=== PATIENT | male | born 1955 | race Caucasian/White ===

== ENCOUNTER 2017-01-20 16:00 | Inpatient (IN) | payer OTHER ==
[2017-01-20] MEDS ORDERED: ACETAMINOPHEN 325 MG TAB PO PRN (18:18)
[2017-01-20] MEDS ORDERED: ONDANSETRON 4 MG/2 ML VIAL IVP PRN (18:18)
[2017-01-20] MEDS ORDERED: ONDANSETRON DISINTEGRATING 4 MG TAB PO PRN (18:18)
[2017-01-20] MEDS: ATORVASTATIN CALCIUM 40 MG TAB PO SCH (18:43)
[2017-01-20] MEDS: ASPIRIN 81 MG CHEWABLE TAB PO SCH (18:43)
[2017-01-20 19:23] LABS: % IMMATURE GRANULYOCYTES 0.9 % (0.0-1.1); ABSOLUTE IMMATURE GRANULOCYTES 0.04 10^3/uL (0.00-0.10); ADD DIFF? NO; ADD MORPH? NO; ADD SCAN? NO; ATYPICAL LYMPHOCYTE FLAG 10 (0-99); FRAGMENT RBC FLAG 0 (0-99); HEMOGLOBIN 8.6 g/dL (13.7-17.5); LEFT SHIFT FLG 10 (0-99); LIPEMIA HEMOLYSIS FLAG 90 (0-99); MEAN CELL HEMOGLOBIN 30.7 pg (27.9-34.1); MEAN CELL HEMOGLOBIN CONCENTR. 34.4 g/dL (32.4-36.7); MEAN CELL VOLUME 89.3 fL (81.5-99.8); MEAN PLATELET VOLUME 9.1 fL (8.7-11.7); PLATELET CLUMPS FLAG 10 (0-99); PLATELET COUNT 210 10^3/uL (150-400); RED CELL DISTRIBUTION WIDTH 14.6 % (11.5-15.2)
--- NOTE | 2017-01-20 19:26 | GHP ---
[f rep st] HISTORY AND PHYSICAL DATE OF ADMISSION: 01/20/2017 CHIEF COMPLAINT: Presyncope. HISTORY OF PRESENT ILLNESS: The patient is a 61-year-old male with a complex medical history including endstage renal disease secondary to polycystic kidney who receives hemodialysis. He was at his dialysis center today when he began feeling lightheaded and was sent to the emergency department for further evaluation. He also is noted to have a history of hypertrophic cardiomyopathy and has recently been experiencing problems with tachy-bradyarrhythmias. He is followed by Dr. Castillo, form carpenter, and they have been monitoring a single lead EKG via an iPhone scott by his report. He seems to correlate his near-syncope symptoms, including lightheadedness and delayed speech, with changes in his heart rate. He had an appointment with Dr. Kelsey from the Electrophysiology service, for evaluation for possible pacemaker in 2 days. However, given his persistent symptoms during dialysis, he is transferred to [facility] from [facility] so he can be managed by his primary form carpenter. He also has a history of a prior CVA. This occurred 2 months ago and presented as a transient global amnesia picture although this was thought to be secondary to a TIA event. Dr. Díaz is his primary transport nurse and he receives hemodialysis Friday, Friday, Friday. Upon my evaluation, the patient denies lightheadedness, dizziness, chest pain, shortness of breath, palpitations. He again gives a history that he occasionally develops slow speech which he correlates with an increase in his heart rate. These symptoms tend to resolve after several minutes. He currently has normal speech with no focal neuro deficits. However, due to concerns for tachy-bradyarrhythmia he is admitted to the hospital for monitoring and cardiology and likely electrophysiology consults. PAST MEDICAL HISTORY: 1. End-stage renal disease secondary to polycystic kidney disease on hemodialysis Friday, Friday, Friday, followed by Dr. Estevan Díaz at [facility]. 2. Hypertrophic cardiomyopathy. 3. History of CVA. 4. Anemia, likely secondary to chronic kidney disease with a stable hemoglobin of 8.5. 5. Obstructive sleep apnea. 6. Hypertension. 7. A 3 mm anterior communicating artery aneurysm on a recent CT angiogram. 8. Chronic small vessel ischemic changes on prior MRI. PAST SURGICAL HISTORY: 1. Bilateral nephrectomy. 2. AV fistula placement in the right forearm. 3. Peritoneal dialysis catheter placement and removal. 4. Skin cancer resection. 5. Right knee surgery. MEDICATIONS: Please see [employer] for complete updated outpatient medication list. ALLERGIES: Adhesive tape. FAMILY HISTORY: Reviewed and noncontributory. SOCIAL HISTORY: The patient is , his is at the bedside, he has 3 children. He denies tobacco or regular alcohol use. 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 REVIEW OF SYSTEMS: A 10-point review of systems was performed and was negative except as per HPI. OBJECTIVE: VITAL SIGNS: Temperature is 36.6, blood pressure 162/77, heart rate 56, respiratory rate 16. He is 98% on room air. GENERAL: The patient is awake, alert, oriented, no acute distress. HEENT: Head is atraumatic, normocephalic. Pupils equal, round, react to light. Extraocular muscles are intact. Oropharynx is clear. Mucous membranes are moist. NECK: Supple. There is no JVD. HEART: Regular rate and rhythm. He has a 4/6 systolic ejection murmur, loudest over the left sternal border. LUNGS: Clear to auscultation bilaterally. ABDOMEN: Soft, nondistended, nontender. Normoactive bowel sounds. EXTREMITIES: Without cyanosis, clubbing, or edema. NEUROLOGIC: Pronator drift is negative. There is no facial asymmetry. Speech is fluent. There are no focal neuro deficits at this time. DIAGNOSTIC STUDIES: EKG is pending. LABORATORY DATA: Pending. This information is unavailable at the time of this dictation as the patient is a direct admit. ASSESSMENT AND PLAN: The patient is a 61-year-old male with a history of end- stage renal disease and hypertrophic cardiomyopathy who presents for direct admission on transfer from [facility] emergency department with near syncope symptoms. 1. Presyncope. Consider cardiogenic source given his HCM with possible decreased cardiac output vs tachy / bradyarrhythmia vs symptomatic anemia vs TIA. He has no focal neuro deficits at this time. I reviewed his CT scan from the [facility] ED and it was negative for an acute intracranial abnormality. He will be monitored on telemetry. Cardiology consult is requested. He will likely also need electrophysiology consult given his tachy/ jorge history. I will check a carotid artery ultrasound to ensure that is not the source of his presyncopal symptoms. We will also check an echocardiogram to evaluate his left ventricular outflow tract. Although I am less suspicious for a CVA, I will go ahead and give him aspirin and statin. Should he have new neurologic symptoms, will request a Neurology consult for consideration of an MRI though it sounds like he recently had an MRI that did not confirm a stroke. Therefore, I will defer further brain imaging at this time unless he develops acute neuro deficits. 2. Endstage renal disease. The patient is dialysis dependent and just dialyzed today. He has no urgent dialysis needs. We will go ahead and recheck his labs to assess his electrolytes and will alert Nephrology of his admission tomorrow so he can be followed inpatient for his ongoing dialysis needs. His next dialysis is due on Friday. 3. Hypertension. His blood pressure is slightly elevated on arrival. I'm currently awaiting completion of his medication reconciliation. When completed , we will resume his outpatient antihypertensive medications. 4. Anemia, likely secondary to chronic kidney disease. His hemoglobin is stable at 8.5. We will defer to Nephrology any Procrit dosing he may need. He is a Christian and declines transfusion. 5. History of prior cerebrovascular accident as above. We will keep him on aspirin and statin for now. 6. DVT prophylaxis. Subcu heparin. CODE STATUS: The patient is full code. DISPOSITION: Patient admitted to observation status though he may be a candidate to transition to inpatient should he require cardiac interventions. /[id number]/MODL MTDD
[2017-01-20 19:36] LABS: INR 1.09 (0.83-1.16)
[2017-01-20 19:38] LABS: ANION GAP 10 mEq/L (8-16); CALCIUM 10.3 mg/dL (8.5-10.4); CARBON DIOXIDE 30 mEq/l (22-31); CHLORIDE 95 mEq/L (97-110); CREATININE 4.8 mg/dL (0.7-1.3); GLOMERULAR FILTRATION RATE 12; GLUCOSE 90 mg/dL (70-100); POTASSIUM 4.4 mEq/L (3.5-5.2); SODIUM 135 mEq/L (134-144)
[2017-01-20 19:50] LABS: TROPONIN I 0.038 ng/mL (0-0.034)
[2017-01-20] MEDS: HEPARIN 5,000 UNIT/0.5 ML SYR SC SCH (20:37)
--- NOTE | 2017-01-20 22:22 | PDCARPN ---
Cardiology Progress Note Chief Complaint: Mr. Reid is well known to my practice. I have been primarily treating his blood pressure which has been well controlled for the last 3-4 months. He has had increasing complaints of palpitations, near syncope and possible TIA in Dec 2016. Work up at [facility] was unremarkalbe for source of TIA. Recent Zio with frequent PVC's and several runs of WCT vs NSVT, longest of 6 beats ( asymptomatic). Now with near syncope and feeling "foggy". Symptoms coincide with decline in Hgb. Assessment/Plan: Assessment: 1 Near Syncope 2. PVC's (runs of WCT vs NsVT on Zio this month) 3. Anemia 4. HTN 5. ESRD Plan: 1. continue current medication 2. EP consult with Dr. Kelsey in the morning 01/20/17 22:22 Time Spent With Patient: 45 min Objective: Vital Signs (8 Hrs) Temp Pulse Resp BP Pulse Ox 01/20/17 20:00 36.7 C 64 15 125/65 H 97 01/20/17 16:00 36.6 C 56 L 16 162/77 H 98 Intake/Output (24 Hrs) 01/19/17 01/20/17 01/21/17 05:59 05:59 05:59 Other: Weight 65.7 kg Intake Quantity Yes Sufficient Result Diagrams: 01/20/17 19:15 01/20/17 19:15 Cardiac Labs: Cardiac Lab Results (72 Hrs) 01/20/17 19:15 Troponin I 0.038 H - Physical Exam Constitutional: WDWN Ears, Nose, Mouth, Throat: moist mucous membranes Cardiovascular: regular rate and rhythm Respiratory: clear to auscultate bilat Gastrointestinal: normoactive bowel sounds Skin: no rashes Musculoskeletal: no muscular tenderness Neurologic: AAOx3, CN II-XII grossly intact Psychiatric: cooperative, interactive, following commands ICD10 Worksheet Patient Problems: Problems Problem Status Onset HTN (hypertension) Acute - ICD10 Problem Qualifiers (1) HTN (hypertension) Qualifiers: Hypertension type: H
--- NOTE | 2017-01-20 22:59 | CPEKG ---
Heart Rate: 60 RR Interval: 1000 P-R Interval: 212 QRSD Interval: 112 QT Interval: 452 QTC Interval: 452 P [place]: 81 QRS [place]: -75 T Wave [place]: 80 EKG Severity - ABNORMAL ECG - EKG Impression: SINUS RHYTHM EKG Impression: LAD, CONSIDER LEFT ANTERIOR FASCICULAR BLOCK EKG Impression: ANTERIOR INFARCT, AGE INDETERMINATE Electronically Signed By: Aaron Webb 22-Jan-2017 09:32:45
--- NOTE | 2017-01-20 23:02 | GCON ---
[f rep st] CONSULTATION CARDIOLOGY CONSULTATION DATE OF CONSULTATION: 01/20/2017 REFERRING PHYSICIAN: Tayler Block MD INDICATION FOR ADMISSION: New onset of lightheadedness and fatigue with increasing PVCs. HISTORY OF PRESENT ILLNESS: The patient is a pleasant 61-year-old gentleman, well known to my cardiology practice at [facility], with a known history of polycystic kidney disease, status post end-stage renal disease and bilateral nephrectomy, essential hypertension, anemia secondary to chronic renal disease, severe combined central and obstructive sleep apnea followed by [facility], history of possible TIA earlier this year, who presented this morning to dialysis as he typically does at 5 o'clock in the morning. At that point, he was described as feeling lightheaded, weak, and lethargic, prompting his evaluation at [facility] after he completed dialysis. I spoke with the emergency room physician at [facility] regarding his most recent history and the patient requested transfer to [facility] for further evaluation. In summary of the patient's cardiac care, the patient initially came to see me in the office in June of 2016, secondary to suboptimally controlled blood pressure. With gradual titration of medication, his blood pressure was optimally well-controlled on minoxidil 30 mg p.o. b.i.d., losartan 50 mg daily, and amlodipine 10 mg daily. He had undergone a normal nuclear stress test in June 2016. Echocardiogram in June demonstrated severe concentric LVH with septal wall thickness of 1.6 cm with no evidence of left ventricular outflow tract obstruction or systolic anterior motion. LV EF of 60% to 65%. He had severe left atrial enlargement and moderate right atrial enlargement with moderate mitral regurgitation and moderate pulmonary hypertension with RV systolic pressure between 50 and 60 mmHg. The patient was in his usual state of health until shortly after the new year when he began complaining of intermittent palpitations. Holter monitor in November 2016, demonstrated normal sinus rhythm with rare ectopic beats with an average heart rate of 69 beats per minute. In December, he came to see me after having an episode of what he described as acute onset of confusion and memory loss. He was admitted to [facility] in December 2016, and underwent extensive workup including a CT of the head and neck which demonstrated nonobstructive vascular disease and evidence of a 3 mm aneurysm of the communicating artery. He underwent MRI of the brain at that time demonstrating chronic small vessel ischemic changes. In January he had acute onset of a rapid heartbeat associated with dizziness and lightheadedness. A cardia home heart rhythm monitor demonstrated a wide- complex rhythm coupled with artifact that was moderately difficult to interpret. He subsequently underwent a ZIO patch monitor. His ZIO patch monitor demonstrated multiple runs of wide-complex tachycardia, the longest of which was 6 beats and he had multiple runs of supraventricular tachycardia, the longest of which was 16 beats. He had incessant PVCs totaling 5.8% of all heartbeats throughout the 13-day period of wearing his ZIO patch. Symptoms recorded with ZIO patch associated with sinus rhythm and isolated PVCs. I had planned for him to be evaluated by Dr. Kelsey for consideration of possible EP study in the setting of symptomatic sudden onset of rapid heartbeat and evidence of wide-complex tachycardia. His symptoms have also correlated with a decline in his hematocrit. His most recent hematocrit was 8. Currently in the hospital today, it is 8.6. He did receive increased dose of Epogen during his last 2 dialysis runs. He states his hemoglobin typically runs around 8. Of note, the patient is a Amish and refuses all blood products. The patient states to me this evening that he felt "foggy" all weekend long with intermittent palpitations. He denied any near-syncope or syncopal events. He does admit to some mild increase in shortness of breath and dyspnea on exertion. He has no complaints of exertional chest pain or chest pressure. Currently at the time of my exam, he is resting comfortably without complaint. Telemetry demonstrates sinus rhythm with frequent isolated single PVCs. REVIEW OF SYSTEMS: Positive for shortness of breath, dyspnea, fatigue, and palpitations. No complaints of chest pain, chest pressure, dizziness, lightheadedness, near-syncope, or syncope. No complaints of PND, orthopnea, or lower extremity edema. He denies complaints of fevers, chills, sweats, nausea, or vomiting. He denies any medical noncompliance. PAST MEDICAL HISTORY: 1. End-stage renal disease secondary to polycystic kidney disease, status post bilateral nephrectomy. 2. Chronic hemodialysis Friday, Friday, Friday. Followed by Dr. Díaz of [facility], although he plans to change to a practice in the [facility]. 3. Hypertension. 4. Hypertensive cardiomyopathy with severe LVH with septal wall thickness of 1.6 cm. No evidence of outflow tract obstruction or systolic anterior motion. 5. History of TIA-like symptoms in December 2016. No significant abnormalities on workup with the exception of chronic small vessel disease and 3 mm communicating aneurysm. PAST SURGICAL HISTORY: 1. Bilateral nephrectomy. 2. AV fistula in the right forearm and history of peritoneal dialysis catheter and removal. MEDICATIONS ON ADMISSION: Amlodipine 10 mg daily, losartan 50 mg daily, minoxidil 30 mg p.o. b.i.d., Kayexalate, Neurontin 100 mg p.o. b.i.d. p.r.n. ALLERGIES: Adhesive tape. FAMILY HISTORY: No premature coronary artery disease. SOCIAL HISTORY: The patient is . He lives with his . He has 3 children. No history of tobacco or regular alcohol use. PHYSICAL EXAMINATION: VITAL SIGNS: On exam blood pressure is 125/65. His blood pressure was 162/77 on admission. Heart rate of 64, respiratory rate of 15, oxygen saturation 97% on room air, temperature 36.7. GENERAL: He is awake , alert, oriented, appropriate. No apparent distress. NECK: There is no evidence of JVP or carotid bruits. LUNGS: Clear to auscultation bilaterally. CARDIAC: S1, S2. Regular rate and rhythm. No murmurs, rubs, or gallops. PMI is not displaced. ABDOMEN: Soft, nontender, nondistended. No pulsatile mass or abdominal bruit. EXTREMITIES: He has no evidence of cyanosis clubbing or edema. DATA: Lab work includes white blood cell count of 4.47, hemoglobin of 8.6, hematocrit 25, platelet count 210. Sodium 135, potassium 4.4, chloride 95, bicarb 30, BUN 21, creatinine 4.8, glucose 90, calcium 10.3. Troponin 0.038. Carotid Doppler study done at [facility] today demonstrates negative evidence of flow-limiting carotid stenosis, small calcified plaque in the carotid bulbs bilaterally. Echocardiogram done June 2016, demonstrates LVEF of 60% to 65%. Severe concentric LVH. Septal wall thickness of 1.6 cm. Severe left atrial enlargement. Moderate right atrial enlargement. Moderate mitral regurgitation. Mild tricuspid regurgitation. RV systolic pressure between 50 and 60 mmHg. Nuclear stress test June 2016: Normal perfusion and function. ZIO patch monitor December 2016: Multiple runs of wide-complex tachycardia with the longest run of 6 beats. Multiple runs of supraventricular tachycardia with the longest run of 16. Incessant PVCs totaling 5.8% of all heartbeats. ASSESSMENT: 1. Recent episodes of near-syncope. 2. Frequent PVCs and runs of wide-complex tachycardia on ZIO patch monitor. 3. Anemia of chronic disease with hemoglobin of 8.6 with hematocrit of 25. Note: Amish, refuses blood products. 4. Hypertension, well controlled on current medical therapy of amlodipine 10 mg daily, losartan 50 mg daily, and minoxidil 30 mg p.o. b.i.d. DISCUSSION: I have been caring for the patient since June of 2016, at which time we were treating suboptimally controlled blood pressure. His blood pressure has been well controlled on current medical therapy for several months. His complaints of palpitations, near-syncope, and recent TIA-like event in December 2016, coincide with decline in his hemoglobin. He typically runs at 8. He is currently 8.6. Again, he is Amish, refusing blood products. He did have an episode of near-syncope with a home cardia heart monitor demonstrating wide-complex tachycardia that coincided with his symptoms. He did undergo a normal nuclear stress test in June 2016. He was scheduled to see Dr. Kelsey on Friday for consideration of possible EP study for possible underlying supraventricular tachycardia versus ventricular tachycardia as origin of his symptoms. Would recommend consultation with electrophysiology with Dr. Kelsey during this hospitalization. RECOMMENDATIONS: 1. Will consult with Dr. Kelsey tomorrow morning. 2. Continue current antihypertensive regimen. 3. Continue on telemetry. 4. Recommend Epogen per Nephrology at hemodialysis on Friday. 45 minutes spent coordinating care. /[id number]/MODL MTDD
[2017-01-21] MEDS: HEPARIN 5,000 UNIT/0.5 ML SYR SC SCH ×3 (05:45→22:06)
[2017-01-21] MEDS: MINOXIDIL 10 MG TAB PO SCH ×2 (09:11→22:06)
[2017-01-21] MEDS: ATORVASTATIN CALCIUM 40 MG TAB PO SCH (09:11)
[2017-01-21] MEDS: ASPIRIN 81 MG CHEWABLE TAB PO SCH (09:11)
[2017-01-21] MEDS: LISINOPRIL 40 MG TAB PO SCH (09:11)
[2017-01-21] MEDS: CALCIUM CARBONATE 500 MG CHEWABLE TAB PO SCH ×3 (09:16→17:47)
[2017-01-21] MEDS ORDERED: IOPAMIDOL (ISOVUE 370) 100 ML BTL IV ONE (15:45)
[2017-01-21] MEDS ORDERED: METOPROLOL TARTRATE 5 MG/5 ML INJ ONE (16:15)
--- NOTE | 2017-01-21 18:36 | HOSPPROG ---
Hospitalist Progress Note Assessment/Plan: # PVCs, NSVT, pre-syncope - EP consult rec's ischemic eval - cardiac CT with possible RCA obstruction, 50% LAD - plan cath tomorrow # ESRD s/p bilat nephrectomy, PCKD - will need HD tomorrow # anemia d/t ESRD - [facility] # htn - lisinopril, norvasc # CVA - asa/statin # SQH Subjective: no syncope Objective: Vital Signs Temp Pulse Resp BP Pulse Ox 36.9 C 64 17 138/65 H 98 01/21/17 16:00 01/21/17 16:00 01/21/17 16:00 01/21/17 16:00 01/21/17 16:00 Laboratory Results 01/20/17 19:15 01/20/17 19:15 01/20/17 01/21/17 01/22/17 05:59 05:59 05:59 Intake Total 0 480 Output Total 0 Balance 0 480 PT 14.0 SEC (12.0-15.0) 01/20/17 19:15 INR 1.09 (0.83-1.16) 01/20/17 19:15 - Time Spent With Patient Time Spent with Patient: greater than 35 minutes Time Spent with Patient: Greater than 35 minutes spent on this patients care, greater than 50% of time spent counseling, educating, and coordinating care regarding the above mentioned plan. - Physical Exam Constitutional: no apparent distress, appears nourished, not in pain ICD10 Worksheet Patient Problems: Problems Problem Status Onset HTN (hypertension) Acute
[2017-01-22] MEDS: HEPARIN 5,000 UNIT/0.5 ML SYR SC SCH ×2 (05:06→15:20)
[2017-01-22] MEDS: CALCIUM CARBONATE 500 MG CHEWABLE TAB PO SCH ×3 (08:52→18:48)
--- NOTE | 2017-01-22 11:50 | PDCARPN ---
Cardiology Progress Note Chief Complaint: Mr. Reid is feeling well this AM. BP is well controlled. Decreased PVC's on telemetry. No new symptoms of dizziness, lightheadedness or near syncope. CTA of coronaries demonstrated approx 50% mid LAD and unable to adequately assess RCA. Plan for [facility] to assess coronary anatomy prior to considering EP study with Dr Kelsey. Plan for HD today as well. Assessment/Plan: Assessment: 1 Near Syncope 2. PVC's (runs of WCT vs NsVT on Zio this month) 3. Anemia 4. HTN 5. ESRD Plan: 1. Left Heart Cath today 2. HD today 3. If no percutaneous intervention needed, will be OK to discharge home after HD 4. If no flow limiting CAD, will arrange for out patient EP study with Dr. Kelsey 5. Recommend discharge home on out patient BP medications. Losartan 50 mg daily , Amlodipine 10 mg daily, Minoxidil 30 mg bid 6. Will follow up with me as an out patient. 01/20/17 22:22 01/22/17 11:47 Reviewed/Discussed With: family, hospitalist Objective: Vital Signs (8 Hrs) Temp Pulse Pulse Pulse Pulse Resp BP 01/22/17 11:29 36.6 C 57 L 15 137/71 H 01/22/17 08:37 62 64 56 L 01/22/17 07:23 36.6 C 59 L 16 149/74 H 01/22/17 04:00 36.4 C 68 14 151/81 H BP BP BP Pulse Ox 01/22/17 11:29 97 01/22/17 08:37 130/70 H 142/81 H 150/76 H 01/22/17 07:23 94 01/22/17 04:00 96 Intake/Output (24 Hrs) 01/21/17 01/22/17 01/23/17 05:59 05:59 05:59 Intake Total 0 680 Output Total 0 Balance 0 680 Intake: Oral (ml) 0 680 Output: Urine (ml) 0 Toilet 0 Other: Weight 64.5 kg 65.5 kg Intake Quantity Yes Sufficient Number of Voids Toilet 1 1 Result Diagrams: 01/20/17 19:15 01/20/17 19:15 Cardiac Labs: Cardiac Lab Results (72 Hrs) 01/21/17 01/20/17 00:11 19:15 Troponin I 0.036 H 0.038 H ICD10 Worksheet Patient Problems: Problems Problem Status Onset HTN (hypertension) Acute - ICD10 Problem Qualifiers (1) HTN (hypertension) Qualifiers: Hypertension type: H
--- NOTE | 2017-01-22 12:02 | ECHO ---
[id number] + + [address] : : [place] [address] : : [phone] + + Adult Echocardiographic Report + ---+ :Name: Raegan CALDERONnabilrudi Date: 01/21/2017 08:25 AM : : Hospital Admission Number: [id number] Location: 209: :: 1955 Gender: Male Height: 70 in : :Age: 61 yrs Race: PTNP Weight: 144 lb : :Reason For Study: Eval LV Fx : : BSA: 1.8 meters2 : :History: Hypertrophic Cardiomyopathy : + ---+ MMode/2D Measurements \T\ Calculations IVSd: 1.8 cm LVIDd: 4.9 cm FS: 47.1 % Ao root diam: 2.6 cm LVPWd: 1.6 cm LVIDs: 2.6 cm EDV(Teich): 110.9 ml ACS: 2.0 cm ESV(Teich): 23.9 ml EF(Teich): 78.4 % Normal Measurement Values: + + :LVIDd (3.5-5.7cm) IVSd (0.6-1.1cm) LVPWd (0.6-1.1cm) Aortic Root (2.0-3.7cm)Left Atrium (1.5-4.0cm): :LV Vol(d) (76-115ml) LV Vol(s) (29-48ml) Ejec Fraction (50-65%)PV Chan (0.6- 1.2m/s) TV Chan (0.4-1.0m/s) : :MV E Chan (0.8-1.0m/s)MV A Chan (0.3-1.0m/s)LVOT Chan (0.7-1.2m/s) Asc Ao Chan ( 0.9-1.8m/s) : + + Doppler Measurements \T\ Calculations MV E max chan: Ao V2 max: AI max chan: LV V1 max: 140.2 cm/sec 253.8 cm/sec 404.3 cm/sec 159.0 cm/sec MV A max chan: Ao max PG: AI max P.4 mmHgLV V1 max P.1 cm/sec 25.8 mmHg AI dec slope: 10.1 mmHg MV E/A: 1.3 258.5 cm/sec2 AI P1/2t: 458.1 msec PA V2 max: TR max chan: 130.3 cm/sec 260.6 cm/sec PA max P.8 mmHgTR max P.2 mmHg RAP systole: 5.0 mmHg RVSP(TR): 32.2 mmHg Left Ventricle The left ventricle is normal in size. There is severe concentric left ventricular hypertrophy. The left ventricular ejection fraction is normal. There is Doppler evidence for diastolic dysfunction. Ejection Fraction = 78%. The left ventricular wall motion is normal. Right Ventricle The right ventricle is normal in size and function. Atria The left atrium is mildly dilated. The right atrium is mildly dilated. Mitral Valve The mitral valve is normal in structure and function. There is no evidence of mitral valve prolapse. There is no mitral valve stenosis. There is mild mitral regurgitation. Tricuspid Valve Normal tricuspid valve. There is mild tricuspid regurgitation. Right ventricular systolic pressure is normal. Aortic Valve The aortic valve is trileaflet. There is no aortic stenosis. Mild aortic regurgitation. Pulmonic Valve The pulmonic valve is normal in structure and function. There is no pulmonic valvular regurgitation. Great Vessels The aortic root is normal size. Pericardium/Pleural There is no pericardial effusion. Conclusion A complete two-dimensional transthoracic echocardiogram was performed (2D, M-mode, Doppler and color flow Doppler). This patient has Hypertrophic cardiomyopathy. The left ventricular ejection fraction is normal. There is Doppler evidence for diastolic dysfunction. Ejection Fraction = 78%. The left ventricular wall motion is normal. The left atrium is mildly dilated. The mitral valve is normal in structure and function. There is mild mitral regurgitation. There is mild tricuspid regurgitation. Right ventricular systolic pressure is normal. The aortic valve is trileaflet. Mild aortic regurgitation. There is no pericardial effusion. This patient has Hypertrophic cardiomyopathy. There is severe concentric left ventricular hypertrophy. Final Reading Physician: Jesús Castillo electronically signed on 01/22/2017 12:00 PM Ordering Physician: Tayler Block Performed By: Price Harris, [facility]
[2017-01-22] MEDS: LISINOPRIL 40 MG TAB PO SCH (12:23)
[2017-01-22] MEDS: ATORVASTATIN CALCIUM 40 MG TAB PO SCH (12:23)
[2017-01-22] MEDS: ASPIRIN 81 MG CHEWABLE TAB PO SCH (12:23)
[2017-01-22] MEDS: MINOXIDIL 10 MG TAB PO SCH (12:24)
--- NOTE | 2017-01-22 12:45 | PDCARCONS ---
Cardiology Consult Reason for Consult: Electrophysiology consultation, frequent PVCs Chief Complaint: Fatigue Requesting Physician: Dr. Jesús Castillo History of Present Illness: I have been asked to visit with Mr. Reid by Dr. Jesús Castillo. [facility], his and daughter were present in the room as was Jamel Obando. He is a very pleasant 59-year-old male who has been complaining of fatigue over the past several weeks. Symptoms have gotten worse recently. He had 1 episode of "blackout" with his speech was incomprehensible but he continued to talk with his family, there was no loss of consciousness. He has not had sustained palpitations. He denies exertional chest pain or exertional palpitations. History Information - Allergies/Home Medication List Allergies/Adverse Reactions: adhesive tape Allergy (Verified 01/20/17 18:05) Home Medications: Aspirin EC [Aspirin EC 81 mg (*)] 81 mg PO DAILY 01/20/17 [Last Taken 01/19/17 10:00] Calcium Carbonate [Tums 500MG (*)] 1,500 mg PO TIDMEAL 01/20/17 [Last Taken 18:00] Lisinopril [Zestril 40 mg (*)] 40 mg PO DAILY 01/20/17 [Last Taken 01/19/17 10: 00] Methocarbamol [Robaxin 500 mg (*)] 500 mg PO HS 01/20/17 [Last Taken 01/19/17 18 :00] Minoxidil [Minoxidil 10 mg (*)] 30 mg PO BID 01/20/17 [Last Taken 01/19/17 18:00 ] amLODIPine BESYLATE [Norvasc 10 mg (*)] 10 mg PO DAILY 01/20/17 [Last Taken 10:00] - Past Medical History ESRD - Social History Smoking Status: Former smoker Physical Exam Temp Pulse Resp BP Pulse Ox 36.6 C 57 L 15 137/71 H 97 01/22/17 11:29 01/22/17 11:29 01/22/17 11:29 01/22/17 11:29 01/22/17 11:29 Constitutional: no apparent distress, appears nourished Eyes: PERRL, anicteric sclera Ears, Nose, Mouth, Throat: hearing normal Cardiovascular: regular rate and rhythym Respiratory: no respiratory distress Lab and Imaging 01/20/17 19:15 01/20/17 19:15 WBC 4.47 10^3/uL (3.80-9.50) 01/20/17 19:15 RBC 2.80 10^6/uL (4.40-6.38) L 01/20/17 19:15 Hgb 8.6 g/dL (13.7-17.5) L 01/20/17 19:15 Hct 25.0 % (40.0-51.0) L 01/20/17 19:15 MCV 89.3 fL (81.5-99.8) 01/20/17 19:15 MCH 30.7 pg (27.9-34.1) 01/20/17 19:15 MCHC 34.4 g/dL (32.4-36.7) 01/20/17 19:15 RDW 14.6 % (11.5-15.2) 01/20/17 19:15 Plt Count 210 10^3/uL (150-400) 01/20/17 19:15 MPV 9.1 fL (8.7-11.7) 01/20/17 19:15 Neut % (Auto) 60.8 % (39.3-74.2) 01/20/17 19:15 Lymph % (Auto) 21.0 % (15.0-45.0) 01/20/17 19:15 Carroll % (Auto) 12.8 % (4.5-13.0) 01/20/17 19:15 Eos % (Auto) 3.6 % (0.6-7.6) 01/20/17 19:15 Baso % (Auto) 0.9 % (0.3-1.7) 01/20/17 19:15 Nucleat RBC Rel Count 0.0 % (0.0-0.2) 01/20/17 19:15 Absolute Neuts (auto) 2.72 10^3/uL (1.70-6.50) 01/20/17 19:15 Absolute Lymphs (auto) 0.94 10^3/uL (1.00-3.00) L 01/20/17 19:15 Absolute Monos (auto) 0.57 10^3/uL (0.30-0.80) 01/20/17 19:15 Absolute Eos (auto) 0.16 10^3/uL (0.03-0.40) 01/20/17 19:15 Absolute Basos (auto) 0.04 10^3/uL (0.02-0.10) 01/20/17 19:15 Absolute Nucleated RBC 0.00 10^3/uL (0-0.01) 01/20/17 19:15 Immature Gran % 0.9 % (0.0-1.1) 01/20/17 19:15 Immature Gran # 0.04 10^3/uL (0.00-0.10) 01/20/17 19:15 PT 14.0 SEC (12.0-15.0) 01/20/17 19:15 INR 1.09 (0.83-1.16) 01/20/17 19:15 Sodium 135 mEq/L (134-144) 01/20/17 19:15 Potassium 4.4 mEq/L (3.5-5.2) 01/20/17 19:15 Chloride 95 mEq/L (97-110) L 01/20/17 19:15 Carbon Dioxide 30 mEq/l (22-31) 01/20/17 19:15 Anion Gap 10 mEq/L (8-16) 01/20/17 19:15 BUN 21 mg/dL (7-23) 01/20/17 19:15 Creatinine 4.8 mg/dL (0.7-1.3) H 01/20/17 19:15 Estimated GFR 12 01/20/17 19:15 Glucose 90 mg/dL (70-100) 01/20/17 19:15 Calcium 10.3 mg/dL (8.5-10.4) 01/20/17 19:15 Troponin I 0.036 ng/mL (0-0.034) H 01/21/17 00:11 Visualized and Interpreted EKG results: Yes EKG additional interpertation: Normal sinus rhythm. Poor R-wave progression. Left axis deviation. IVCD. Telemetry: Sinus rhythm with frequent PVCs, PVCs are monomorphic and appear to be superior axis in morphology. A/P Assessment: 1. Chronic kidney disease on hemodialysis 2. Hypertension 3. Anemia 4. Fatigue. 5. Frequent PVCs. Plan: 61-year-old male who is presenting with fatigue. Fatigue is likely multifactorial and related to end-stage renal disease, chronic anemia and frequent PVCs. I have reviewed his tracings from when he had "blackout spell" this was recorded by his daughter using Kardia device, this is consistent with sinus rhythm with significant artifact. Telemetry monitoring shows frequent PVCs. His blood pressure is well controlled with 3 antihypertensive agents. His left ventricular ejection fraction is normal, echocardiogram with significant LVH. Frequent PVCs are seen, I discussed with the patient at length that we likely cannot explain all his symptoms based on PVCs alone. However given his progressive fatigue with increasing PVC frequency, we need a definitive assessment of his coronary artery disease status. Myocardial perfusion stress test was normal however I have recommended that he have evaluation of his coronary arteries either with CT angiography of his coronary arteries or with traditional angiogram. He is a Bahai. He is already anemic any bleeding complications from the coronary angiogram could lead to . He understands this. He will discuss this further with Dr. Jesús Castillo. I have also discussed this with Dr. Castillo at length. If coronary angiography shows critical CAD, this should be addressed 1st. If not, we can consider electrophysiology studies down the road to assess whether he is having significant arrhythmias that could have led to symptoms of dizziness.
[2017-01-22 15:05] LABS: ANION GAP 14 mEq/L (8-16); CALCIUM 9.2 mg/dL (8.5-10.4); CARBON DIOXIDE 24 mEq/l (22-31); CHLORIDE 94 mEq/L (97-110); GLOMERULAR FILTRATION RATE 6; GLUCOSE 81 mg/dL (70-100); POTASSIUM 5.7 mEq/L (3.5-5.2); SODIUM 132 mEq/L (134-144)
--- NOTE | 2017-01-22 15:07 | GCON ---
[f rep st] CONSULTATION DATE OF CONSULTATION: 01/22/2017 REASON FOR CONSULTATION: Opinion regarding end-stage kidney failure. HISTORY OF PRESENT ILLNESS: The patient is a very pleasant 61-year-old gentleman who has end-stage kidney failure due to autosomal dominant polycystic kidney disease. He has been on dialysis for scott roximately 20 years. The patient is a Taoism and does not use blood products. Over the course of the past several months, the patient has seen his hemoglobin decrease to between 8 and 9. He was having some dizziness and lightheadedness, as well as some palpitations and felt like the wo rld was spinning around him. He was admitted to the hospital. Evaluation is under way, Cardiology is involved. He is going down for cardiac catheterization later today. The patient has not been having fevers, chills, nausea, vomiting. He has had no chest pain. Does o ccasionally get shortness of breath with these episodes. Feels like he has palpitations. No nausea . No vomiting. No radiation of pain into his neck, jaw, shoulders, arms, or back. He does not stanley ak out into a sweat. No abdominal discomfort, diarrhea, melena, hematochezia, orthopnea, paroxysmal nocturnal dyspnea, palpitations, or syncope. PAST MEDICAL HISTORY: 1. Autosomal dominant polycystic kidney disease. 2. Hypertension. 3. Hyperlipidemia. ALLERGIES: Adhesive tape. FAMILY HISTORY: As far as he knows, there is not a family history of polycystic kidney disease. CURRENT MEDICATIONS: Tylenol 650 mg every 4 hours p.r.n., Norvasc 10 mg a day, aspirin 81 mg a day, Lipitor 40 mg a day, calcium carbonate 1500 mg with each meal, subcutaneous heparin, lisinopril 40 mg a day, minoxidil 30 mg twice daily, Zofran. SOCIAL HISTORY: The patient is on his second marriage, his first of cancer. He is origin ally from [place]. He moved out to [place] to be closer to his daughter and grandchildren. He is a Taoism and does not accept blood products. He has recently remarried. He does not use tobacco, alcohol, IV or recreational drugs and has no tattoos. 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 REVIEW OF SYSTEMS: A complete 12-point review of systems was performed, the pertinent positives and negatives as per the previous sections. PHYSICAL EXAMINATION: VITAL SIGNS: Blood pressure 137/71, pulse 57, respirations 15, temperature 3 6.6 degrees. GENERAL: He is awake, alert, cooperative, in no distress. HEART: Regular. No rub. No S3. There is a grade 1/6 systolic murmur. LUNGS: No rhonchi or wheezes. ABDOMEN: Bowel soun ds are positive, soft, nontender, nondistended. EXTREMITIES: He has a left forearm arteriovenous f istula with a good bruit and thrill. NEUROLOGIC: No asterixis. SKIN: No unusual rashes or lesion s. LYMPH: No palpable lymphadenopathy or lymphedema. MUSCULOSKELETAL: No fusions or tenderness. LABORATORY: Serum sodium 135, potassium 4.4, chloride 95, CO2 30, BUN 21, creatinine 4.8, glucose 9 0, calcium 10.3. WBC 4.5, hemoglobin 8.6, hematocrit 25, platelet count 210,000. IMPRESSION: 1. End-stage kidney failure on 3 times weekly hemodialysis. 2. Taoism, cannot use blood products. 3. Dizziness, lightheadedness, and palpitations, query ischemic or significant vascular disease or coronary vascular disease. RECOMMENDATIONS: 1. Today is his dialysis day. We will try to get him on dialysis after his cardiac catheterization . 2. Cardiac catheterization is planned for this afternoon. 3. Epogen for his anemia. His hemoglobin is 8.6. 4. Continue his antihypertensives. Thank you for allowing me to participate in the care of your patient. If there are any questions, italo blanca do not hesitate to contact me. I will be following along with you. /[id number]/MODL
[2017-01-22] MEDS ORDERED: LIDOCAINE 1% 30 ML SDV ONE (15:14)
[2017-01-22] MEDS ORDERED: MIDAZOLAM 2 MG/2 ML VIAL ONE (15:15)
[2017-01-22] MEDS ORDERED: fentaNYL 100 MCG/2 ML INJ ONE (15:15)
[2017-01-22 15:16] LABS: CREATININE 9.5 mg/dL (0.7-1.3)
[2017-01-22] MEDS ORDERED: HEPARIN 10,000 UNIT/10 ML MDV ONE ×2 (15:16→15:31)
[2017-01-22] MEDS ORDERED: VERAPAMIL 5 MG/2 ML VIAL ONE (15:16)
[2017-01-22] MEDS ORDERED: IOPAMIDOL (ISOVUE 370) 100 ML BTL IV ONE (15:17)
--- NOTE | 2017-01-22 16:55 | HOSPPROG ---
Hospitalist Progress Note Assessment/Plan: # PVCs, NSVT, pre-syncope - ischemic eval negative - likely Linq monitor tomorrow - possibly d/t anemia - will work to increase his hgb as outpatient # ESRD s/p bilat nephrectomy, PCKD - HD today # anemia d/t ESRD - Orthodox # htn - losartan, norvasc # CVA - asa/statin # SQH ## discussed with Norma Douglas and Jonathan Subjective: s/p cath with no obstructive CAD Objective: Vital Signs Temp Pulse Resp BP Pulse Ox 36.6 C 57 L 15 137/71 H 97 01/22/17 11:29 01/22/17 11:29 01/22/17 11:29 01/22/17 11:29 01/22/17 11:29 Laboratory Results 01/20/17 19:15 01/22/17 14:00 01/21/17 01/22/17 01/23/17 05:59 05:59 05:59 Intake Total 0 680 Output Total 0 Balance 0 680 PT 14.0 SEC (12.0-15.0) 01/20/17 19:15 INR 1.09 (0.83-1.16) 01/20/17 19:15 - Time Spent With Patient Time Spent with Patient: greater than 35 minutes Time Spent with Patient: Greater than 35 minutes spent on this patients care, greater than 50% of time spent counseling, educating, and coordinating care regarding the above mentioned plan. - Physical Exam Constitutional: no apparent distress, appears nourished ICD10 Worksheet Patient Problems: Problems Problem Status Onset HTN (hypertension) Acute
--- NOTE | 2017-01-22 17:26 | CPIP ---
[f rep st] INVASIVE CARDIAC PROCEDURE DATE OF PROCEDURE: 01/20/2017 PROCEDURE: 1. Coronary angiography. 2. Left ventriculography. INDICATION: 1. Syncope. 2. Nonsustained ventricular tachycardia and ventricular ectopy on monitoring. ACCESS: Patient was prepped and draped in sterile fashion. 1% lidocaine was used to anesthetize th e left radial region. A 5-Armenian introducer sheath was placed selectively into the left radial judith ry via modified Seldinger technique. CORONARY ANGIOGRAPHY: A 5-Armenian JL 3.5 was advanced to the left main coronary artery and images ob tained. The left main coronary artery bifurcated into an LAD and circumflex coronary arteries. The left main coronary artery appeared normal. The left anterior descending coronary artery gave rise to 2 prominent diagonal branches. In the mid left anterior descending coronary artery, sequential 2 5% to 30% stenoses could be seen. The diagonal arteries appear free of any significant disease. Th e circumflex coronary artery was a large vessel. It was nondominant. Circumflex coronary artery ap peared normal. A 5-Armenian JR4 was advanced to the right coronary artery and images obtained. The r ight coronary artery is dominant. The right coronary artery is large. In the proximal segment of t he right coronary artery there is a discrete 20% stenosis present. In the mid segment there is a di screte 20% stenosis present. LEFT VENTRICULOGRAPHY: 5-Armenian pigtail catheter was advanced in the left ventricle and images obta ined. The left ventricle is normal in size, had normal systolic function. Estimated ejection fract ion of 70%. COMPLICATIONS: None. CONCLUSIONS: 1. Mild coronary artery disease without flow limitation. 2. Normal left ventricular size and systolic function. PLAN: Medical management. /[id number]/MODL
[2017-01-22] MEDS ORDERED: EPOETIN ALFA 10,000 UNIT/ML VIAL SC ONE (21:00)
[2017-01-23] MEDS: HEPARIN 5,000 UNIT/0.5 ML SYR SC SCH ×2 (00:50→06:40)
[2017-01-23] MEDS: MINOXIDIL 10 MG TAB PO SCH ×2 (00:51→08:22)
[2017-01-23] MEDS: ASPIRIN 81 MG CHEWABLE TAB PO SCH ×2 (00:51→08:23)
[2017-01-23] MEDS: ATORVASTATIN CALCIUM 40 MG TAB PO SCH ×2 (00:51→08:23)
[2017-01-23 04:46] VITALS: TEMP 98.2; O2SAT 96
[2017-01-23 05:32] LABS: ANION GAP 15 mEq/L (8-16); CALCIUM 8.8 mg/dL (8.5-10.4); CARBON DIOXIDE 24 mEq/l (22-31); CHLORIDE 97 mEq/L (97-110); CREATININE 4.8 mg/dL (0.7-1.3); GLOMERULAR FILTRATION RATE 12; GLUCOSE 72 mg/dL (70-100); POTASSIUM 4.5 mEq/L (3.5-5.2); SODIUM 136 mEq/L (134-144)
[2017-01-23 07:25] VITALS: BP 148/55; PULSE 67; RESP 16
--- NOTE | 2017-01-23 08:20 | PDCARPN ---
Cardiology Progress Note Chief Complaint: MR. Reid is feeling well this AM. No complaints. Left radial artery site is without hematoma or ecchymosis. BP remains well controlled. No significant ectopy overnight on telemetry. HD last PM. Minimal CAD on C yesterday. Assessment/Plan: Assessment: 1 Near Syncope 2. PVC's (runs of WCT vs NsVT on Zio this month) 3. Anemia 4. HTN 5. ESRD 6. Mild non obstructive cad Plan: 1. Add Atorvastatin 20 mg daily 2. OK to discharge home with no change to out patient BP medications 3. My office with arrange out pt follow up in next two-three weeks 4. Post cath instructions discussed. 01/20/17 22:22 01/22/17 11:47 01/23/17 08:19 Objective: Vital Signs (8 Hrs) Temp Pulse Resp BP Pulse Ox 01/23/17 07:21 36.8 C 67 16 148/55 H 96 01/23/17 04:00 36.8 C 64 14 185/71 H 96 01/23/17 00:40 36.7 C 65 16 173/90 H 100 Intake/Output (24 Hrs) 01/22/17 01/23/17 01/24/17 05:59 05:59 05:59 Intake Total 680 700 Output Total 0 1999 Balance 680 -1300 Intake: Oral (ml) 680 700 Output: Urine (ml) 0 Toilet 0 Dialysis Fluid Removed 1999 Other: Weight 65.5 kg 64.5 kg Number of Voids Toilet 1 Result Diagrams: 01/20/17 19:15 01/23/17 03:48 Cardiac Labs: Cardiac Lab Results (72 Hrs) 01/21/17 01/20/17 00:11 19:15 Troponin I 0.036 H 0.038 H ICD10 Worksheet Patient Problems: Problems Problem Status Onset HTN (hypertension) Acute - ICD10 Problem Qualifiers (1) HTN (hypertension) Qualifiers: Hypertension type: H
[2017-01-23] MEDS: CALCIUM CARBONATE 500 MG CHEWABLE TAB PO SCH (08:23)
[2017-01-23] MEDS ORDERED: LOSARTAN POTASSIUM 50 MG TAB PO SCH (09:00)
--- NOTE | 2017-01-23 09:09 | GDS ---
[f rep st] DISCHARGE SUMMARY ALL DIAGNOSES: 1. Presyncope. 2. Ventricular ectopy including premature ventricular contractions and nonsustained ventricular tac hycardia. 3. End-stage renal disease, status post bilateral nephrectomy due to polycystic kidney disease. 4. Anemia due to end-stage renal disease. 5. Hypertension. 6. History of a cerebrovascular accident. 7. Mild nonobstructive coronary artery disease. HOSPITAL COURSE: This is a 61-year-old man, who had a presyncopal episode during hemodialysis. He had been followed by his director of loss prevention for ongoing ventricular ectopy. Because of this, an EP consul tation was obtained. It was felt necessary to rule out ischemia, thus he underwent first a coronary CT angiogram, which was indeterminate, followed by a cardiac catheterization, which showed mild non obstructive flow-limiting disease. It is notable that his hemoglobin is 8, and felt that his ventri cular ectopy may be driven by anemia. He will work with his transfer clerk to increase his hemoglobin over the next few weeks. 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 He will be discharged with followup with Dr. Castillo, his director of loss prevention, for ongoing evaluation of his e ctopy. He will also follow up with his transfer clerk for work on his anemia. BILLING: I spent less than 30 minutes on the day of discharge coordinating care. /[id number]/MODL
--- NOTE | 2017-01-23 10:30 | SOAPPROG ---
SOAP Progress Note Assessment/Plan: Assessment:Plan: Anemia-I stopped his SQ heparin -Baptism -I would avoid this therapy in the future as he is at high risk for complications from this ESRD-for Hd tomorrow as outpatient -patient in the middle of transferring care, but he has not completed the TB screening required -he needs to go to his regular clinic at his normal time CV-discussed with Dr. Castillo Dispo-home today 01/23/17 10:28 Subjective: stable overnite Objective: Vital Signs Temp Pulse Resp BP Pulse Ox 36.8 C 67 16 148/55 H 96 01/23/17 07:21 01/23/17 07:21 01/23/17 07:21 01/23/17 07:21 01/23/17 07:21 Laboratory Results 01/20/17 19:15 01/23/17 03:48 01/22/17 01/23/17 01/24/17 05:59 05:59 05:59 Intake Total 680 700 Output Total 0 2000 Balance 680 -1300 PT 14.0 SEC (12.0-15.0) 01/20/17 19:15 INR 1.09 (0.83-1.16) 01/20/17 19:15 ICD10 Worksheet Patient Problems: Problems Problem Status Onset HTN (hypertension) Acute
== END 2017-01-23 10:32 | disposition home or self-care (01) | DRG 286 ==
LOC: F2W 16:00 → OBSVTOIN 01-21 18:37
PROVIDERS: ADMIT Internal Medicine; ATTEND Hospitalist
PROC: B2111ZZ Fluoroscopy of Multiple Coronary Arteries using Low Osmolar Contrast (ICD-10-PCS; principal; 2017-01-20)
PROC: B2151ZZ Fluoroscopy of Left Heart using Low Osmolar Contrast (ICD-10-PCS; principal; 2017-01-20)
PROC: 5A1D00Z (ICD-10-PCS; 2017-01-22)
DX: R55 Syncope and collapse (principal); N18.6 End stage renal disease; I47.2 Ventricular tachycardia; I12.0 Hypertensive chronic kidney disease with stage 5 chronic kidney disease or end stage renal disease; I42.2 Other hypertrophic cardiomyopathy; Q61.3 Polycystic kidney, unspecified; D63.1 Anemia in chronic kidney disease; G47.33 Obstructive sleep apnea (adult) (pediatric); I25.10 Atherosclerotic heart disease of native coronary artery without angina pectoris; Z86.73 Personal history of transient ischemic attack (TIA), and cerebral infarction without residual deficits; Z99.2 Dependence on renal dialysis
CPT/HCPCS: 97161-GP; C1769; G0378; G0379; G0472; G8978-GP-CH; G8979-GP-CH; G8980-GP-CH; J0885; J1644; J2250; J3010; Q9967

== ENCOUNTER 2018-04-07 09:41 | Day surgery (SDC) | payer OTHER ==
--- NOTE | 2018-04-07 09:25 | PDGENHP ---
History & Physical Chief Complaint: CC: Anemia History of Present Illness: Anemia, hx of polycytic kidney disease in dialysis, melena. Epigastric pain Pertinent Past, Social, Family History: Poly cystic disease Relevant Physical Exam: Lungs clear. COR normal s1 s2
[2018-04-07] MEDS ORDERED: NS 500 ML IV ONE (10:25)
--- NOTE | 2018-04-07 11:21 | PDANEPAE ---
ANE Past Medical History - Cardiovascular History Hx Hypertension: Yes Hx Arrhythmias: No Hx Chest Pain: No Hx Coronary Artery / Peripheral Vascular Disease: No Hx CHF / Valvular Disease: No Hx Palpitations: No Cardiovascular History Comment: arrythmias are dependant on h& h - Pulmonary History Hx COPD: No Hx Asthma/Reactive Airway Disease: No Hx Recent Upper Respiratory Infection: No Hx Oxygen in Use at Home: No Hx Sleep Apnea: Yes Sleep Apnea Screening Result - Last Documented: Positive Pulmonary History Comment: cpap no 02 - Neurologic History Hx Cerebrovascular Accident: No Hx Seizures: No Hx Dementia: No Neurologic History Comment: seizure yr ago none since - Endocrine History Hx Diabetes: No - Renal History Hx Renal Disorders: Yes Renal History Comment: CKD on dialysis - Liver History Hx Hepatic Disorders: No - Neurological & Psychiatric Hx Hx Neurological and Psychiatric Disorders: No - Cancer History Hx Cancer: Yes Cancer History Comment: skin - Congenital Disorder History Hx Congenital Disorders: No - GI History Hx Gastrointestinal Disorders: Yes Gastrointestinal History Comment: reflux/gerd - Other Health History Other Health History: bilat cataract. chronic anemic - Chronic Pain History Chronic Pain: No (bilat hands and knees) - Surgical History Prior Surgeries: none ANE Review of Systems Review of Systems: - Exercise capacity METS (RN): 4 METS ANE Patient History - Allergies Allergies/Adverse Reactions: adhesive tape Allergy (Verified 04/02/18 16:15) Other-Enter Comments - Home Medications Home Medications: Minoxidil [Minoxidil 10 mg (*)] 01/20/17 [Last Taken 04/06/18] Atorvastatin Calcium [Lipitor 40 mg (*)] 04/02/18 [Last Taken 04/06/18] Auryxia 04/02/18 [Last Taken 04/06/18] Dialyvite 800 with Iron Tab 04/02/18 [Last Taken 04/06/18] Gabapentin 04/02/18 [Last Taken 04/06/18] Kayexalate 15GM/60 ML Oral Liquid 04/02/18 [Last Taken 04/04/18] Losartan Potassium [Cozaar 50 mg (*)] 04/02/18 [Last Taken 04/06/18] Pantoprazole Sodium 04/02/18 [Last Taken 04/06/18] - NPO status NPO Since - Liquids (Date): 04/06/18 NPO Since - Liquids (Time): 21:00 NPO Since - Solids (Date): 04/06/18 NPO Since - Solids (Time): 18:00 - Smoking Hx Smoking Status: Former smoker - Family Anes Hx Family Hx Anesthesia Complications: none ANE Labs/Vital Signs - Vital Signs Blood Pressure: 154/76 Heart Rate: 55 Respiratory Rate: 14 O2 Sat (%): 97 Height: 177.8 cm Weight: 70.307 kg ANE Physical Exam - Airway Neck exam: FROM Mallampati Score: Class 2 - Pulmonary Pulmonary: no respiratory distress - Cardiovascular Cardiovascular: regular rate and rhythym - ASA Status ASA Status: III ANE Anesthesia Plan Total IV Anesthesia: Yes
[2018-04-07] MEDS ORDERED: PROPOFOL 200 MG/20 ML VIAL ONE (11:22)
[2018-04-07] MEDS ORDERED: ALBUTEROL 3 ML DEYVIAL IH PRN (11:41)
[2018-04-07] MEDS ORDERED: NALOXONE HCL 0.4 MG/ML INJ IVP PRN (11:41)
--- NOTE | 2018-04-07 11:42 | GIREPORT ---
Pending Sale To [facility] - Endoscopy Department Patient Name: Ramon Reid Procedure Date: 04/07/2018 11:24 AM Patient Type: Outpatient Attending MD/ ER Physician: Von Chao MD Procedure: Upper GI endoscopy Indications: Iron deficiency anemia secondary to chronic blood loss, Melena, Work up in last year with normal EGD, Colonosopcy and Capsule study Providers: Von Chao MD Medicines: Propofol per Anesthesia Complications: No immediate complications. Description of Procedure: After obtaining informed consent, the endoscope was passed under direct vision. Throughout the procedure, the patient's blood pressure, pulse, and oxygen saturations were monitored continuously. The Endoscope was intro duced through the mouth, and advanced to the second part of duodenum. The [facility] GI endoscopy was accomplished without difficulty. The patient tolerated th e procedure well. Moderate Sedation: GA Findings: The examined esophagus was normal. The entire examined stomach was normal. The examined duodenum was normal. Biopsies for histology were taken wit h a cold forceps for evaluation of celiac disease. Estimated Blood Loss: Estimated blood loss: none. Post Op Diagnosis: - Normal esophagus. - Normal stomach. - Normal examined duodenum. Biopsied. Recommendation: - Patient has a contact number available for emergencies. The signs and symptoms of potential delayed complications were discussed with the pat ient. Return to normal activities tomorrow. Written discharge instructions we re provided to the patient. - Await pathology results. - Continue present medications. - Perform a computed tomographic (CT scan) enterography at appointment to be scheduled. - Return to GI office after studies are complete. - Thank you for allowing me to participate in the care of your patient. Attending Participation: I personally performed the entire procedure. Von Chao MD Von Chao MD 04/07/2018 11:41:42 AM This report has been signed electronicallyVon Chao MD Number of Addenda: 0 Note Initiated On: 04/07/2018 11:24 AM [email or web address]
--- NOTE | 2018-04-07 11:42 | POSTANESTH ---
Post Anesthetic Evaluation Cardiovascular Status: Similar to Pre-Op Cond Respiratory Status: Similar to Pre-op Cond. Level of Consciousness/Mental Status: Alert and Oriented Pain Control: Adequate, Prn Tx Ordered Nausea/Vomiting Control: Adequate, Prn Tx Ordered Complications Possibly Related to Anesthesia: None Noted
[2018-04-07 12:36] VITALS: BP 155/77
== END 2018-04-07 12:50 | disposition home or self-care (01) ==
LOC: FSGY 09:41
PROVIDERS: ATTEND Internal Medicine Gastroenterology
PROC: 0DB88ZX Excision of Small Intestine, Via Natural or Artificial Opening Endoscopic, Diagnostic (ICD-10-PCS; principal; 2018-04-07 11:00)
DX: K92.1 Melena (principal); D64.9 Anemia, unspecified; N18.6 End stage renal disease; I12.0 Hypertensive chronic kidney disease with stage 5 chronic kidney disease or end stage renal disease; Q61.3 Polycystic kidney, unspecified; Z99.2 Dependence on renal dialysis; Z87.891 Personal history of nicotine dependence
CPT/HCPCS: J2704